=== PATIENT | female | born 1945 | race Caucasian/White ===

== ENCOUNTER 2020-03-05 20:28 | Emergency (ER) | payer MEDICARE, SELFPAY ==
[2020-03-05 20:31] VITALS: BP 181/69; PULSE 69; RESP 30; TEMP 36.9; O2SAT 91
--- NOTE | 2020-03-05 20:37 | XR_ITS ---
WS: [id number] EXAM: AP CHEST: PORTABLE UPRIGHT DATE OF EXAM: 03/05/2020, 2101 hours COMPARISON: Chest x-ray from 06/04/2018 HISTORY: Patient is 75 years old with dyspnea. FINDINGS: The cardiac silhouette is slightly larger than on prior imaging. Question if related to technique T he mediastinal contours show interval stenting of a thoracic aneurysm. Interval postop sternotomy ch anges from presumed coronary artery bypass as well. The pulmonary vascularity is congested. Right lung is clear. There has been interval development of a left mid and lower chest infiltrate/pneumonia with a suspected small effusion. No pneumothorax. 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 Surgical clips in the left axil maya region. No acute bony abnormality is seen. XR/XR chest 1V portable [id number] IMPRESSION: Findings of new left lung infiltrates suggesting a left lung pneumonia. Interva l surgical changes as described.
--- NOTE | 2020-03-05 20:39 | ECG_ITS ---
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 Measurements Intervals [place] Rate: 65 P: 70 MN: 132 QRS: 39 QRSD: 109 T: 56 QT: 376 QTc: 393 Interpretive Statements SINUS RHYTHM Compared to ECG 06/04/2018 10:39:06 Sinus tachycardia no longer present Incomplete right bundle-branch block no longer present Electronically Signed On 03-06-2020 20:51:53 CDT by Rosendo Ward M.D. [id number]
--- NOTE | 2020-03-05 20:42 | ED_ITS ---
HPI - SOB/Dyspnea General: Chief Complaint: Shortness of Breath/Dyspnea Stated Complaint: Shortness of Breath Time Seen by Provider: 03/05/20 20:28 Source: patient and EMS Mode of arrival: EMS Limitations: physical limitation (Respiratory distress) History of Present Illness: HPI Narrative: Mrs. Morrison is a nice 75-year-old female who comes in in respiratory distress. She arrives by EMS states that they noted the patient to be hypoxic on her normal oxygen in the low 80s. This was believed to be on 6 L nasal cannula oxygen. They gave the patient 2 albuterol treatments in route along with 125 mg of Solu-Medrol. This time the patient's history is very limited but she states she has been home approximately 5 days from a procedure at [facility]. She states that ever since she left the hospital she is progressively becoming more short of breath. She does have a cough and it is productive of sputum. Review of Systems General: Reports: ROS unobtainable due to medical condition (Unable to obtain secondary to respiratory distress) Physical Exam Const: COMMON NORMALS: patient oriented x3 and alert GENERAL APPEARANCE: cooperative, in distress and ill appearing HENMT: COMMON NORMALS: normocephalic, atraumatic, external ears normal, EAC's normal and Normal external nose present HEAD & SCALP: normal to inspection, normocephalic and atraumatic FACE & SINUS: normal facial exam and face symmetric NOSE: Normal external nose present and Normal nares present EXTERNAL EAR: Yes external ears normal EXTERNAL AUDITORY CANAL: EAC's normal MOUTH: Normal oral and palatal mucosa present, lip normal and tongue normal Eye: COMMON NORMALS: Equal, round and reactive pupils present and conjunctivae normal GENERAL EYE: appearance normal, both eyes and all related structures ALIGNMENT: Yes alignment normal PERIORBITAL: periorbital findings normal EYELID: eyelids normal CONJUNCTIVA: Yes conjunctivae normal SCLERA: sclerae normal PUPIL: Yes Equal, round and reactive pupils present Neck/C-Spine: COMMON NORMALS: full ROM, no lymphadenopathy, supple, no meningeal signs and no JVD GENERAL: Yes normal visual inspection and Yes trachea midline Chest: COMMONS NORMALS: normal inspection of the chest and normal palpation of entire chest wall Resp: EFFORT & INSPECTION: Yes respiratory distress, Yes labored and Yes retractions AUSCULTATION: rales, rhonchi, wheezes and diminished lung sounds Cardio: COMMON NORMALS: no JVD, regular rate, regular rhythm, S1 normal heart sound present and S2 normal heart sound present RATE: regular rate RHYTHM: regular rhythm HEART SOUNDS: S1 normal heart sound present, S2 normal heart sound present, no click, no gallops, no murmurs and no rubs GI: COMMON NORMALS: Soft to palpation and No hepatosplenomegaly present PALPATION: Yes Soft to palpation, No Tenderness to palpation present (GI), No Guarding due to palpation present (GI), No Rigid due to palpation, Yes No hepatosplenomegaly present, No Hernia present, No Palpable mass present and No Pulsatile mass present : COMMON NORMALS: Yes no CVA tenderness BLADDER/KIDNEY EXAM: Yes no CVA tenderness EXTERNAL FEMALE EXAM: No Hernia present Back/Pelvis: COMMON NORMALS: no CVA tenderness, thoracic and lumbar spine n ormal to inspection, no thoracic nor lumbar tenderness and thoraco-lumbar ROM normal Extremity: COMMON NORMALS: normal to inspection, full ROM, capillary refill normal, no joint enlargement and no calf tenderness GENERAL: Yes edema Neuro: COMMON NORMALS: patient oriented x3, CN's II-XII intact bilaterally, moves all extremities, no focal motor deficits and no sensory deficits noted SENSORIUM/ORIENTATION: Yes alert MENINGEAL SIGNS: Yes no meningeal signs SPEECH: speech normal Skin: COMMON NORMALS: no rashes or lesions noted, turgor normal, no jaundice, no petechiae and no mottling GENERAL SKIN EXAM: no rashes or lesions noted and turgor normal Procedures EJ/Peripheral Line Arm R: Time Out Performed: Yes Skin Cleansed in Sterile Fashion: Yes Size (gauge): 20 IV Secured and Dressing Applied: Yes Patient Tolerated Procedure: well and no complications Additional Comments: Ultrasound utilized throughout procedure. There were no complications. 20-gauge 2-1/2 inch needle was placed under direct visualization with ultrasound. There was good blood return and the catheter flushed well. Line was secured by nursing. Course ED course: 2308 -EMS reported that the patient had an abdominal aortic aneurysm stenting. I have just now received records from [facility] which reveals this was a thoracic aortic aneurysm repair. This does correlate to the mesh that I see on chest x-ray. The patient has been a poor historian secondary to her respiratory distress. She denies having any chest pain. Nonetheless I am going to go ahead and get a CT of the aorta dissection protocol to rule out any leakage or complication from surgery. Vital Signs: Vital signs: Vital Signs Temperature 98.5 F 03/05/20 20:31 Pulse Rate 66 03/06/20 00:22 Respiratory Rate 18 03/06/20 00:22 Blood Pressure 120/74 03/06/20 00:22 Pulse Oximetry 99 03/06/20 00:22 MDM - SOB/Dyspnea MDM Narrative: Medical decision making narrative: 0200 - Patient CT scan shows an endoleak and an enlarging aneurysm. I discussed the case with both Dr. Stoddard and Dr. Vazquez and they believe the patient needs to be transferred to a higher level of care as we do not have the ability to take care of any complication from this procedure. Reviewed the case with Dr. Garcia at [facility] in [place] who performed the procedure and he agrees to consult but would like the hospitalist admission there. Dr. Garica believes that the findings are normal post procedure findings. With no sign of dissection he believes the patient primarily just has pneumonia she is not having chest pain and there is no dissection. He will evaluate her when she gets here but does not believe this to be a primary complication from the procedure. I reviewed the rest of the case with Dr. Domínguez, he agrees accept the patient and will accept the patient as soon as a bed is available. Patient is still currently on BiPAP and stable and is received antibiotics. Lab Data: Labs: Lab Results 03/05/20 03/05/20 03/05/20 Range/Units 21:10 21:10 21:10 WBC 17.8 H (4.0-10.0) 10^3/ uL RBC 3.37 L (4.1-5.3) 10^6/u L Hgb 9.2 L (11.5-15.3) g/dL Hct 30.2 L (37.0-47.0) % MCV 89.6 (81-99) fL MCH 27.3 L (28.0-34.0) pg MCHC 30.5 (30.0-36.0) g/dL RDW 14.6 (12.1-15.1) % Plt Count 532 H (130-400) 10^3/c mm MPV 9.3 (7.4-10.4) fL Neut % (Auto) 87.6 % Lymph % (Auto) 6.0 % [place] % (Auto) 4.0 % Eos % (Auto) 0.6 % Baso % (Auto) 0.2 % Neut # (Auto) 15.62 H (1.8-7.7) 10^3/u L Lymph # (Auto) 1.1 (0.8-4.8) 10^3/u L [place] # (Auto) 0.7 (0.2-0.9) 10^3/u L Eos # (Auto) 0.1 (0.0-0.8) 10^3/u L Baso # (Auto) 0.0 (0.0-0.1) 10^3/u L Nucleated RBC % (a uto) 0.4 % Nucleated RBCs # 0.1 /100WBC PT (12.1-14.9) SECO NDS INR (0.8-1.2) APTT (23.9-36.7) SECO NDS Specimen Type Sample Site ABG pH (7.35-7.45) ABG pCO2 (35-45) mmHg ABG pO2 (80.0-100.0) mmH g ABG HCO3 (22-26) mmol/L ABG O2 Saturation ABG Base Excess (-2.0-2.0) mmol/ L Lisandro Test A-a O2 Gradient (5-10) mmHg Hematocrit (37-47) % Hgb O2 Saturation (95-100) % Carboxyhemoglobin (0.4-20.1) %THgb Methemoglobin (0.4-1.5) % Total Hemoglobin (12-16) g/dL Ionized Calcium (1.1-1.4) mmol/L O2 Delivery Device FiO2 % Information Technology Audit Manager ID Sodium 128 L (136-145) mmol/L Potassium 4.6 (3.5-5.1) mmol/L Chloride 96 L (98-107) mmol/L Carbon Dioxide 21 L (22-29) mmol/L Anion Gap 15.6 (5-19) BUN 15 (8-23) mg/dL Creatinine 0.7 (0.5-0.9) mg/dL GFR Calculation Not Reportable Glucose 221 H (65-115) mg/dL Calculated Osmolal ity 269 L (285-295) mOsm/k g Lactic Acid 2.3 H (0.5-2.2) mmol/L Lactic Acid (Sepsi s) (0.5-2.2) mmol/L Calcium 8.0 L (8.5-10.5) mg/dL Magnesium 2.3 (1.7-2.3) mg/dL Total Bilirubin 0.3 (0.15-1.2) mg/dL AST 18 (0-32) U/L ALT 25 (0-33) U/L Alkaline Phosphata se 174 H (35-105) IU/L Troponin T Baselin e (0-10) ng/L Troponin T 120 Min [place] (0-10) ng/L Delta Troponin T (0-10) ABS# NT-Pro-B Natriuret Pep 2589 H (0-125) pg/mL Total Protein 6.8 (6.6-8.7) g/dL Albumin 2.9 L (3.5-5.2) g/dL Globulin 3.9 (1.3-4.6) g/dL Urine Color (Yellow) Urine Appearance (CLEAR) Urine pH (5-7) Ur Specific Gravit y (1.005-1.030) Urine Protein (Negative) Urine Glucose (UA) (Normal) Urine Ketones (Negative) Urine Blood (Negative) Urine Nitrate (Negative) Urine Bilirubin (Negative) Urine Urobilinogen (Negative) mg/dL Ur Leukocyte Lilian ase (Negative) Influenza Type A A g (Negative) Influenza Type B A g (Negative) SARS-CoV-2 Ag (Rap id) (Negative) 03/05/20 03/05/20 03/05/20 Range/Units 21:10 21:10 21:20 WBC (4.0-10.0) 10^3/ uL RBC (4.1-5.3) 10^6/u L Hgb (11.5-15.3) g/dL Hct (37.0-47.0) % MCV (81-99) fL MCH (28.0-34.0) pg MCHC (30.0-36.0) g/dL RDW (12.1-15.1) % Plt Count (130-400) 10^3/c mm MPV (7.4-10.4) fL Neut % (Auto) % Lymph % (Auto) % [place] % (Auto) % Eos % (Auto) % Baso % (Auto) % Neut # (Auto) (1.8-7.7) 10^3/u L Lymph # (Auto) (0.8-4.8) 10^3/u L [place] # (Auto) (0.2-0.9) 10^3/u L Eos # (Auto) (0.0-0.8) 10^3/u L Baso # (Auto) (0.0-0.1) 10^3/u L Nucleated RBC % (a uto) % Nucleated RBCs # /100WBC PT 38.50 H (12.1-14.9) SECO NDS INR 3.74 H (0.8-1.2) APTT 48.9 H (23.9-36.7) SECO NDS Specimen Type Arterial Sample Site Brachial, right ABG pH 7.39 (7.35-7.45) ABG pCO2 34.1 L (35-45) mmHg ABG pO2 66.1 L (80.0-100.0) mmH g ABG HCO3 20.8 L (22-26) mmol/L ABG O2 Saturation 94.0 ABG Base Excess -3.5 L (-2.0-2.0) mmol/ L Lisandro Test Pos A-a O2 Gradient 23.1 H (5-10) mmHg Hematocrit 30.3 L (37-47) % Hgb O2 Saturation 92.3 L (95-100) % Carboxyhemoglobin 1.1 (0.4-20.1) %THgb Methemoglobin 0.7 (0.4-1.5) % Total Hemoglobin 9.9 L (12-16) g/dL Ionized Calcium 1.1 (1.1-1.4) mmol/L O2 Delivery Device Bipap FiO2 40.0 % Information Technology Audit Manager ID [email or web address] Sodium 129.0 L (136-145) mmol/L Potassium 4.5 (3.5-5.1) mmol/L Chloride (98-107) mmol/L Carbon Dioxide (22-29) mmol/L Anion Gap (5-19) BUN (8-23) mg/dL Creatinine (0.5-0.9) mg/dL GFR Calculation Glucose 231.0 H (65-115) mg/dL Calculated Osmolal ity (285-295) mOsm/k g Lactic Acid (0.5-2.2) mmol/L Lactic Acid (Sepsi s) (0.5-2.2) mmol/L Calcium (8.5-10.5) mg/dL Magnesium (1.7-2.3) mg/dL Total Bilirubin (0.15-1.2) mg/dL AST (0-32) U/L ALT (0-33) U/L Alkaline Phosphata se (35-105) IU/L Troponin T Baselin e 23 H (0-10) ng/L Troponin T 120 Min [place] (0-10) ng/L Delta Troponin T (0-10) ABS# NT-Pro-B Natriuret Pep (0-125) pg/mL Total Protein (6.6-8.7) g/dL Albumin (3.5-5.2) g/dL Globulin (1.3-4.6) g/dL Urine Color (Yellow) Urine Appearance (CLEAR) Urine pH (5-7) Ur Specific Gravit y (1.005-1.030) Urine Protein (Negative) Urine Glucose (UA) (Normal) Urine Ketones (Negative) Urine Blood (Negative) Urine Nitrate (Negative) Urine Bilirubin (Negative) Urine Urobilinogen (Negative) mg/dL Ur Leukocyte Lilian ase (Negative) Influenza Type A A g (Negative) Influenza Type B A g (Negative) SARS-CoV-2 Ag (Rap id) (Negative) 03/05/20 03/05/20 03/05/20 Range/Units 21:26 21:26 22:20 WBC (4.0-10.0) 10^3/ uL RBC (4.1-5.3) 10^6/u L Hgb (11.5-15.3) g/dL Hct (37.0-47.0) % MCV (81-99) fL MCH (28.0-34.0) pg MCHC (30.0-36.0) g/dL RDW (12.1-15.1) % Plt Count (130-400) 10^3/c mm MPV (7.4-10.4) fL Neut % (Auto) % Lymph % (Auto) % [place] % (Auto) % Eos % (Auto) % Baso % (Auto) % Neut # (Auto) (1.8-7.7) 10^3/u L Lymph # (Auto) (0.8-4.8) 10^3/u L [place] # (Auto) (0.2-0.9) 10^3/u L Eos # (Auto) (0.0-0.8) 10^3/u L Baso # (Auto) (0.0-0.1) 10^3/u L Nucleated RBC % (a uto) % Nucleated RBCs # /100WBC PT (12.1-14.9) SECO NDS INR (0.8-1.2) APTT (23.9-36.7) SECO NDS Specimen Type Sample Site ABG pH (7.35-7.45) ABG pCO2 (35-45) mmHg ABG pO2 (80.0-100.0) mmH g ABG HCO3 (22-26) mmol/L ABG O2 Saturation ABG Base Excess (-2.0-2.0) mmol/ L Lisandro Test A-a O2 Gradient (5-10) mmHg Hematocrit (37-47) % Hgb O2 Saturation (95-100) % Carboxyhemoglobin (0.4-20.1) %THgb Methemoglobin (0.4-1.5) % Total Hemoglobin (12-16) g/dL Ionized Calcium (1.1-1.4) mmol/L O2 Delivery Device FiO2 % Information Technology Audit Manager ID Sodium (136-145) mmol/L Potassium (3.5-5.1) mmol/L Chloride (98-107) mmol/L Carbon Dioxide (22-29) mmol/L Anion Gap (5-19) BUN (8-23) mg/dL Creatinine (0.5-0.9) mg/dL GFR Calculation Glucose (65-115) mg/dL Calculated Osmolal ity (285-295) mOsm/k g Lactic Acid (0.5-2.2) mmol/L Lactic Acid (Sepsi s) (0.5-2.2) mmol/L Calcium (8.5-10.5) mg/dL Magnesium (1.7-2.3) mg/dL Total Bilirubin (0.15-1.2) mg/dL AST (0-32) U/L ALT (0-33) U/L Alkaline Phosphata se (35-105) IU/L Troponin T Baselin e (0-10) ng/L Troponin T 120 Min [place] (0-10) ng/L Delta Troponin T (0-10) ABS# NT-Pro-B Natriuret Pep (0-125) pg/mL Total Protein (6.6-8.7) g/dL Albumin (3.5-5.2) g/dL Globulin (1.3-4.6) g/dL Urine Color Yellow (Yellow) Urine Appearance Clear (CLEAR) Urine pH 6 (5-7) Ur Specific Gravit y 1.000 L (1.005-1.030) Urine Protein Neg (Negative) Urine Glucose (UA) Norm (Normal) Urine Ketones Negative (Negative) Urine Blood Neg (Negative) Urine Nitrate Negative (Negative) Urine Bilirubin Neg (Negative) Urine Urobilinogen 1 H (Negative) mg/dL Ur Leukocyte Lilian ase Negative (Negative) Influenza Type A A g Negative (Negative) Influenza Type B A g Negative (Negative) SARS-CoV-2 Ag (Rap id) Negative (Negative) 03/05/20 03/05/20 Range/Units 23:10 23:11 WBC (4.0-10.0) 10^3/ uL RBC (4.1-5.3) 10^6/u L Hgb (11.5-15.3) g/dL Hct (37.0-47.0) % MCV (81-99) fL MCH (28.0-34.0) pg MCHC (30.0-36.0) g/dL RDW (12.1-15.1) % Plt Count (130-400) 10^3/c mm MPV (7.4-10.4) fL Neut % (Auto) % Lymph % (Auto) % [place] % (Auto) % Eos % (Auto) % Baso % (Auto) % Neut # (Auto) (1.8-7.7) 10^3/u L Lymph # (Auto) (0.8-4.8) 10^3/u L [place] # (Auto) (0.2-0.9) 10^3/u L Eos # (Auto) (0.0-0.8) 10^3/u L Baso # (Auto) (0.0-0.1) 10^3/u L Nucleated RBC % (a uto) % Nucleated RBCs # /100WBC PT (12.1-14.9) SECO NDS INR (0.8-1.2) APTT (23.9-36.7) SECO NDS Specimen Type Sample Site ABG pH (7.35-7.45) ABG pCO2 (35-45) mmHg ABG pO2 (80.0-100.0) mmH g ABG HCO3 (22-26) mmol/L ABG O2 Saturation ABG Base Excess (-2.0-2.0) mmol/ L Lisandro Test A-a O2 Gradient (5-10) mmHg Hematocrit (37-47) % Hgb O2 Saturation (95-100) % Carboxyhemoglobin (0.4-20.1) %THgb Methemoglobin (0.4-1.5) % Total Hemoglobin (12-16) g/dL Ionized Calcium (1.1-1.4) mmol/L O2 Delivery Device FiO2 % Information Technology Audit Manager ID Sodium (136-145) mmol/L Potassium (3.5-5.1) mmol/L Chloride (98-107) mmol/L Carbon Dioxide (22-29) mmol/L Anion Gap (5-19) BUN (8-23) mg/dL Creatinine (0.5-0.9) mg/dL GFR Calculation Glucose (65-115) mg/dL Calculated Osmolal ity (285-295) mOsm/k g Lactic Acid (0.5-2.2) mmol/L Lactic Acid (Sepsi s) 2.3 H (0.5-2.2) mmol/L Calcium (8.5-10.5) mg/dL Magnesium (1.7-2.3) mg/dL Total Bilirubin (0.15-1.2) mg/dL AST (0-32) U/L ALT (0-33) U/L Alkaline Phosphata se (35-105) IU/L Troponin T Baselin e (0-10) ng/L Troponin T 120 Min [place] 20.59 H (0-10) ng/L Delta Troponin T -2.41 L (0-10) ABS# NT-Pro-B Natriuret Pep (0-125) pg/mL Total Protein (6.6-8.7) g/dL Albumin (3.5-5.2) g/dL Globulin (1.3-4.6) g/dL Urine Color (Yellow) Urine Appearance (CLEAR) Urine pH (5-7) Ur Specific Gravit y (1.005-1.030) Urine Protein (Negative) Urine Glucose (UA) (Normal) Urine Ketones (Negative) Urine Blood (Negative) Urine Nitrate (Negative) Urine Bilirubin (Negative) Urine Urobilinogen (Negative) mg/dL Ur Leukocyte Lilian ase (Negative) Influenza Type A A g (Negative) Influenza Type B A g (Negative) SARS-CoV-2 Ag (Rap id) (Negative) Imaging Data^: CXR: Attestation: I personally reviewed and interpreted this imaging study as follows: My impression: Left lower lobe infiltrate. Thoracic aortic mesh noted. No sign of mediastinal widening or rupture. CTA aorta: Radiologist's impression: [place] [address] CT Scan Report Signed with Tan Patient: Gail Morrison Unit #: [id number] : 1945 Age/Sex: 75 / F ADM Date: 03/05/20 Loc: ER Room/Bed: Attending Dr: Ordering Provider/Ordering MD: Justine De La O DO Date of Service: 03/05/20 Procedure(s): CT angio chest w abd pel w con Accession Number(s): [id number] Report Number: [id number]UM [address]/CT angio chest w abd pel w con THIS REPORT CONTAINS FINDINGS THAT MAY BE CRITICAL TO PATIENT CARE. The findings were verbally communicated via telephone conference with Justine De La O at 12:56 AM CDT on 03/06/2020. The findings were acknowledged and understood. Radiation Dose CTDIVOL = (mGy): DLP = 2644.55 2644.55 (mGy-cm) Addendum Dictated By: Khalida Patel Addendum Signed By: Khalida Patel Signed Date/Time: 03/06/20 005 Addendum Cosigned By: PROCEDURE INFORMATION: Exam: CT Angiography Chest Without And With Contrast Exam date and time: 03/05/2020 11:10 PM Age: 75 years old Clinical indication: Other: Short of breath; Prior surgery; Surgery date: 3-7 days post-operative; Surgery type: Thoracic aorta repair; Patient HX: Sudden onset of shortness of breath tonight; Additional info: Chest/abdominal pain TECHNIQUE: Imaging protocol: Computed tomographic angiography of the chest without and with intravenous contrast. 3D rendering (Not supervised by radiologist): MIP and/or 3D reconstructed images were created by the technologist. Radiation optimization: All CT scans at this facility use at least one of these dose optimization techniques: automated exposure control; mA and/or kV adjustment per patient size (includes targeted exams where dose is matched to clinical indication); or iterative reconstruction. Contrast material: OMNIPAQUE 350; Contrast volume: 95 ml; Contrast route: INTRAVENOUS (IV); COMPARISON: CR XR chest 1V portable [id number] 03/05/2020 8:58 PM RADIATION DOSE METRICS: Total DLP (mGy-cm): 2644.55 FINDINGS: Pulmonary arteries: There is no pulmonary embolus. Aorta: The root of the ascending thoracic aorta measures 4 cm and is otherwise unremarkable without dissection or leak. There is an aortic stent graft in the distal ascending thoracic aorta, aortic arch and descending thoracic aorta. The greatest transverse measurement of the thoracic aorta is at the distal thoracic aortic arch measuring 5.9 cm increased from the preoperative film where measured 5 cm. There is an endoleak with contrast outside of the stent graft series 602, image 35 along superior left aspect of the aortic arch also identified on series 5 image 21 through 26. Probable mural hematoma along the posterior left aortic arch and proximal descending thoracic aorta measures up to 1.6 cm in thickness. The mid to distal thoracic aorta is unchanged in appearance without dissection or leak. The branches off of the aortic arch are well opacified. Great vessels off aortic arch: The endoleak is occurring adjacent to the origin of the left subclavian artery from the aortic arch. A left subclavian stent is well opacified. Lungs: There is dense airspace consolidation/pneumonic infiltrate in the left lower lobe with air bronchograms. There is patchy pneumonitis/volume loss in the right lower lobe. There are moderate to severe emphysematous changes. Pleural space: There is a small left pleural effusion. Heart: The heart is enlarged. There is a small pericardial fluid collection present. Lymph nodes: Unremarkable. No enlarged lymph nodes. Bones/joints: Postoperative changes of a median sternotomy are noted. Soft tissues: Unremarkable. IMPRESSION: 1. 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 There is an aortic stent graft with endoleak and probable mural hematoma. No dissection. 2. There is dense airspace consolidation/pneumonic infiltrate in the left lower lobe with air bronchograms. There is patchy pneumonitis/volume loss in the right lower lobe. There is a left pleural effusion. 3. There is no pulmonary embolus. PROCEDURE INFORMATION: Exam: CT Abdomen And Pelvis With Contrast Exam date and time: 03/05/2020 11:10 PM Age: 75 years old Clinical indication: Other: Short of breath; Prior surgery; Surgery date: 3-7 days post-operative; Surgery type: Thoracic aorta repair; Patient HX: Sudden onset of shortness of breath tonight; Additional info: Chest/abdominal pain TECHNIQUE: Imaging protocol: Computed tomography of the abdomen and pelvis with intravenous contrast. Radiation optimization: All CT scans at this facility use at least one of these dose optimization techniques: automated exposure control; mA and/or kV adjustment per patient size (includes targeted exams where dose is matched to clinical indication); or iterative reconstruction. Contrast material: OMNIPAQUE 350; Contrast volume: 95 ml; Contrast route: INTRAVENOUS (IV); COMPARISON: CR XR chest 1V portable [id number] 03/05/2020 8:58 PM RADIATION DOSE METRICS: Total DLP (mGy-cm): 2644.55 FINDINGS: Tubes, catheters and devices: A balloon bladder catheter is present. Liver: There is an unchanged liver cyst. The liver is otherwise homogeneous in density. Gallbladder and bile ducts: Normal. No calcified stones. No ductal dilation. Pancreas: Normal. No ductal dilation. Spleen: Normal. No splenomegaly. Adrenals: There are unchanged adrenal nodules with the right nodule measuring 1.5 cm in size and the left measuring 2.7 cm. Kidneys and ureters: There is no evidence of hydronephrosis. There is no evidence of renal calcifications. There are multiple renal hypodensities that cannot be further characterized on the current examination. Stomach and bowel: Moderate diverticulosis is present in the distal colon. There is no evidence of intestinal perforation or obstruction. There is no evidence of colitis/diverticulitis. Appendix: The appendix is not definitively identified. However, there is no CT evidence of a right lower quadrant inflammatory process. Intraperitoneal space: Unremarkable. No free air. No significant fluid collection. Vasculature: Unremarkable.No abdominal aortic aneurysm. Lymph nodes: Unremarkable.No enlarged lymph nodes. Bladder: The bladder is decompressed. Reproductive: Unremarkable as visualized. Bones/joints: Unremarkable. No acute fracture. Soft tissues: There is diffuse induration of the subcutaneous fat and mesenteric fat compatible with anasarca type changes. CT/CT angio chest w abd pel w con IMPRESSION: 1. No acute abnormality in the abdomen or pelvis. There is an unchanged liver cyst and unchanged bilateral adrenal nodules. No bowel thickening or inflammatory changes. No aneurysm of the abdominal aorta. 2. There is diffuse induration of the subcutaneous fat and mesenteric fat compatible with anasarca type changes. Radiation Dose CTDIVOL = (mGy): DLP = 2644.55 2644.55 (mGy-cm) Dictated By: Khalida Patel Signed By: Khalida Patel Signed Date/Time: 03/06/2054 DD/ EKG Data^: EKG 1: Attestation: I personally reviewed and interpreted this EKG as follows: EKG Interpretation Date: 03/05/20 EKG interpretation time: 20:50 Interpretation: Normal sinus rhythm 65 beats a minute, normal axis, normal intervals, no blocks, no acute ST or T wave changes. Discharge Plan Discharge Patient Disposition: Xfer Short-Term Hosp Clinical Impression: Acute respiratory distress, Acute exacerbation of chronic obstructive airways disease, Aneurysm of ascending aorta Pneumonia Qualifiers: Pneumonia type: due to unspecified organism Laterality: left Lung location: lower lobe of lung Qualified Code(s): J18.9 - Pneumonia, unspecified organism Referrals: Ruba Martinez MD [Primary Care Provider] - Discharge Date/Time: 03/05/20 23:38 Coding Level of Care Code ED Sports Photographer for g Fwd Exam Comprehensive
[2020-03-05 20:50] VITALS: PULSE 76; RESP 28; O2SAT 95
[2020-03-05] MEDS: ipratropium-albuterol 3 mL Neb 9 ML INHALATION (20:50)
[2020-03-05 21:10] VITALS: PULSE 79; RESP 28; O2SAT 96
[2020-03-05 21:19] LABS: Basophils % 0.2 %; Eosinophils # 0.1 10^3/uL (0.0-0.8); Eosinophils % 0.6 %; Hematocrit 30.2 % (37.0-47.0); Hemoglobin 9.2 g/dL (11.5-15.3); Lymphocytes # 1.1 10^3/uL (0.8-4.8); Mean Corpuscular HGB Conc 30.5 g/dL (30.0-36.0); Mean Corpuscular Hemoglobin 27.3 pg (28.0-34.0); Mean Corpuscular Volume 89.6 fL (81-99); Mean Platelet Volume 9.3 fL (7.4-10.4); Monocytes # 0.7 10^3/uL (0.2-0.9); Neutrophils # 15.62 10^3/uL (1.8-7.7); Neutrophils % 87.6 %; Nucleated Red Blood Cells # 0.1 /100WBC; Nucleated Red Blood Cells % 0.4 %; Platelet Count 532 10^3/cmm (130-400); Red Blood Count 3.37 10^6/uL (4.1-5.3); Red Cell Distribution Width 14.6 % (12.1-15.1); White Blood Count 17.8 10^3/uL (4.0-10.0)
[2020-03-05 21:30] LABS: ABG PCO2 34.1 mmHg (35-45); ABG PH Result 7.39 (7.35-7.45); Alveolar-Arterial Oxygen Gradi 23.1 mmHg (5-10); Arterial Blood Gas Hematocrit 30.3 % (37-47); Base Excess ABG -3.5 mmol/L (-2.0-2.0); Blood Gas Allen Test Pos; Blood Gas Sample Site Brachial, right; Blood Gas Sample Type Arterial; Carboxyhemoglobin 1.1 %THgb (0.4-20.1); HCO3 ABG 20.8 mmol/L (22-26); HGB O2 Sat 92.3 % (95-100); Ionized Calcium Level - ABG 1.1 mmol/L (1.1-1.4); Methemoglobin 0.7 % (0.4-1.5); Oxygen Device BIPAP; PO2 ABG 66.1 mmHg (80.0-100.0); Potassium Level - ABG 4.5 mmol/L (3.5-5.0); Total Hemoglobin 9.9 g/dL (12-16)
[2020-03-05] MEDS: FUROsemide 10 mg/mL SDV 4mL 40 MG IVP (21:39)
[2020-03-05] MEDS: piperacillin-tazobactam 3.375 GM in sodium chloride 0.9% (plus) 50 ML IV (21:39)
[2020-03-05] MEDS: sodium chloride 0.9% 1,000 ML 100 ML IV (21:40)
[2020-03-05] MEDS: vancomycin 1,000 MG in sodium chloride 0.9% 250 ML 250 MG IV (21:40)
[2020-03-05] MEDS: nitroglycerin 1 gm/inch oint Pkt 1 INCH TOPICAL (21:40)
[2020-03-05] MEDS: ondansetron 2 mg/ML SDV 2 mL 4 MG IVP (21:40)
[2020-03-05 21:48] LABS: Lactic Sepsis W/Reflex 2.3 mmol/L (0.5-2.2)
[2020-03-05 21:50] LABS: Troponin(5th) Baseline 23 ng/L (0-10)
[2020-03-05 21:58] LABS: Alanine Aminotransferase 25 U/L (0-33); Albumin Level 2.9 g/dL (3.5-5.2); Alkaline Phosphatase 174 IU/L (35-105); Anion Gap 15.6 (5-19); Aspartate Amino Transferase 18 U/L (0-32); Blood Urea Nitrogen 15 mg/dL (8-23); Carbon Dioxide 21 mmol/L (22-29); Chloride 96 mmol/L (98-107); Globulin 3.9 g/dL (1.3-4.6); Glucose 221 mg/dL (65-115); Magnesium 2.3 mg/dL (1.7-2.3); NT Pro B Type Natriuretic Pept 2589 pg/mL (0-125); Osmolality Calculated 269 mOsm/kg (285-295); Potassium 4.6 mmol/L (3.5-5.1); Sodium 128 mmol/L (136-145); Total Bilirubin 0.3 mg/dL (0.15-1.2); Total Protein 6.8 g/dL (6.6-8.7)
[2020-03-05 22:13] LABS: SARS Covid-2 Antigen Negative (Negative)
[2020-03-05 22:23] LABS: Add Urine Microscopic? NO
[2020-03-05 22:28] LABS: Influenza A by IFA Negative (Negative); Influenza B by IFA Negative (Negative)
[2020-03-05 22:30] LABS: INR 3.74 (0.8-1.2)
[2020-03-05 22:31] LABS: Partial Thromboplastin Time 48.9 SECONDS (23.9-36.7)
[2020-03-05 22:32] LABS: Bilirubin Urine Neg (Negative); Blood Urine Neg (Negative); Glucose Urine UA Norm (Normal); Ketones Urine Negative (Negative); Leukocyte Esterase Urine Negative (Negative); Nitrate Urine Negative (Negative); Protein Urine Neg (Negative); Urine Appearance Clear (CLEAR); Urine Color Yellow (Yellow); Urobilinogen Urine 1 mg/dL (Negative); pH Urine 6 (5-7)
--- NOTE | 2020-03-05 23:03 | CTR_ITS ---
PROCEDURE INFORMATION: Exam: CT Angiography Chest Without And With Contrast Exam date and time: 03/05/2020 11:10 PM Age: 75 years old Clinical indication: Other: Short of breath; Prior surgery; Surgery date: 3-7 days post-operative; Surgery type: Thoracic aorta repair; Patient HX: Sudden onset of shortness of breath tonight; Additional info: Chest/abdominal pain TECHNIQUE: Imaging protocol: Computed tomographic angiography of the chest without and with intravenous contrast. 3D rendering (Not supervised by radiologist): MIP and/or 3D reconstructed images were created by the technologist. Radiation optimization: All CT scans at this facility use at least one of these dose optimization techniques: automated exposure control; mA and/or kV adjustment per patient size (includes targeted exams where dose is matched to clinical indication); or iterative reconstruction. Contrast material: OMNIPAQUE 350; Contrast volume: 95 ml; Contrast route: INTRAVENOUS (IV); COMPARISON: [employer] XR chest 1V portable [id number] 03/05/2020 8:58 PM RADIATION DOSE METRICS: Total DLP (mGy-cm): 2644.55 FINDINGS: Pulmonary arteries: There is no pulmonary embolus. Aorta: The root of the ascending thoracic aorta measures 4 cm and is otherwise unremarkable without dissection or leak. There is an aortic stent graft in the distal ascending thoracic aorta, aortic arch and descending thoracic aorta. The greatest transverse measurement of the thoracic aorta is at the distal thoracic aortic arch measuring 5.9 cm increased from the preoperative film where measured 5 cm. There is an endoleak with contrast outside of the stent graft series 602, image 35 along superior left aspect of the aortic arch also identified on series 5 image 21 through 26. Probable mural hematoma along the posterior left aortic arch and proximal descending thoracic aorta measures up to 1.6 cm in thickness. The mid to distal thoracic aorta is unchanged in appearance without dissection or leak. The branches off of the aortic arch are well opacified. Great vessels off aortic arch: The endoleak is occurring adjacent to the origin of the left subclavian artery from the aortic arch. A left subclavian stent is well opacified. Lungs: There is dense airspace consolidation/pneumonic infiltrate in the left lower lobe with air bronchograms. There is patchy pneumonitis/volume loss in the right lower lobe. There are moderate to severe emphysematous changes. Pleural space: There is a small left pleural effusion. Heart: The heart is enlarged. There is a small pericardial fluid collection present. Lymph nodes: Unremarkable. No enlarged lymph nodes. Bones/joints: Postoperative changes of a median sternotomy are noted. Soft tissues: Unremarkable. IMPRESSION: 1. 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 There is an aortic stent graft with endoleak and probable mural hematoma. No dissection. 2. There is dense airspace consolidation/pneumonic infiltrate in the left lower lobe with air bronchograms. There is patchy pneumonitis/volume loss in the right lower lobe. There is a left pleural effusion. 3. There is no pulmonary embolus. PROCEDURE INFORMATION: Exam: CT Abdomen And Pelvis With Contrast Exam date and time: 03/05/2020 11:10 PM Age: 75 years old Clinical indication: Other: Short of breath; Prior surgery; Surgery date: 3-7 days post-operative; Surgery type: Thoracic aorta repair; Patient HX: Sudden onset of shortness of breath tonight; Additional info: Chest/abdominal pain TECHNIQUE: Imaging protocol: Computed tomography of the abdomen and pelvis with intravenous contrast. Radiation optimization: All CT scans at this facility use at least one of these dose optimization techniques: automated exposure control; mA and/or kV adjustment per patient size (includes targeted exams where dose is matched to clinical indication); or iterative reconstruction. Contrast material: OMNIPAQUE 350; Contrast volume: 95 ml; Contrast route: INTRAVENOUS (IV); COMPARISON: [facility] XR chest 1V portable [id number] 03/05/2020 8:58 PM RADIATION DOSE METRICS: Total DLP (mGy-cm): 2644.55 FINDINGS: Tubes, catheters and devices: A balloon bladder catheter is present. Liver: There is an unchanged liver cyst. The liver is otherwise homogeneous in density. Gallbladder and bile ducts: Normal. No calcified stones. No ductal dilation. Pancreas: Normal. No ductal dilation. Spleen: Normal. No splenomegaly. Adrenals: There are unchanged adrenal nodules with the right nodule measuring 1.5 cm in size and the left measuring 2.7 cm. Kidneys and ureters: There is no evidence of hydronephrosis. There is no evidence of renal calcifications. There are multiple renal hypodensities that cannot be further characterized on the current examination. Stomach and bowel: Moderate diverticulosis is present in the distal colon. There is no evidence of intestinal perforation or obstruction. There is no evidence of colitis/diverticulitis. Appendix: The appendix is not definitively identified. However, there is no CT evidence of a right lower quadrant inflammatory process. Intraperitoneal space: Unremarkable. No free air. No significant fluid collection. Vasculature: Unremarkable.No abdominal aortic aneurysm. Lymph nodes: Unremarkable.No enlarged lymph nodes. Bladder: The bladder is decompressed. Reproductive: Unremarkable as visualized. Bones/joints: Unremarkable. No acute fracture. Soft tissues: There is diffuse induration of the subcutaneous fat and mesenteric fat compatible with anasarca type changes. CT/CT angio chest w abd pel w con IMPRESSION: 1. No acute abnormality in the abdomen or pelvis. There is an unchanged liver cyst and unchanged bilateral adrenal nodules. No bowel thickening or inflammatory changes. No aneurysm of the abdominal aorta. 2. There is diffuse induration of the subcutaneous fat and mesenteric fat compatible with anasarca type changes. Radiation Dose CTDIVOL = (mGy): DLP = 2644.55~2644.55 (mGy-cm)
[2020-03-05 23:04] LABS: Reflex Lactate Order REFLEX LACTIC ORDERD
[2020-03-05 23:10] VITALS: BP 133/59; PULSE 64; RESP 23; O2SAT 94
[2020-03-05 23:25] VITALS: BP 112/54; PULSE 64; RESP 16; O2SAT 96
[2020-03-05 23:50] LABS: Lactic Acid level (Lactate) 2.3 mmol/L (0.5-2.2)
[2020-03-06] VITALS (19 sets, daily range): BP systolic 120–152; BP diastolic 63–88; PULSE 49–77; RESP 16–87; TEMP 36.2–36.6; O2SAT 92–99
[2020-03-06 00:14] LABS: Troponin 5 2HR 20.59 ng/L (0-10)
[2020-03-06 00:16] LABS: Troponin 5 2HR Delta -2.41 ABS# (0-10)
[2020-03-06] MEDS: iohexol 350 mg/mL 100 mL Btl IV (00:40)
[2020-03-06] MEDS: ipratropium-albuterol 3 mL Neb INHALATION ×2 (04:30→20:24)
--- NOTE | 2020-03-06 05:14 | PC.NURSE ---
Pt resting with eyes closed in no acute distress. Respirations even and unlabored
[2020-03-06] MEDS: sodium chloride 0.9% 1,000 ML 100 ML IV ×2 (06:02→19:03)
[2020-03-06] MEDS: piperacillin-tazobactam 3.375 GM in sodium chloride 0.9% (plus) 50 ML IV ×2 (06:03→20:10)
--- NOTE | 2020-03-06 06:46 | PC.NURSE ---
BiPap removed and pt provided with ice water at this time. Pt is alert and oriented. Denies any other needs at this time. BiPap placed back on pt and secure with no alarms sounding.
[2020-03-06] MEDS: vancomycin 1,000 MG in sodium chloride 0.9% 250 ML 250 MG IV (18:42)
[2020-03-06 19:23] LABS: Basophils % 0.1 %; Eosinophils % 0.1 %; Hematocrit 27.4 % (37.0-47.0); Hemoglobin 8.4 g/dL (11.5-15.3); Lymphocytes % 6.8 %; Mean Corpuscular HGB Conc 30.7 g/dL (30.0-36.0); Mean Corpuscular Hemoglobin 27.6 pg (28.0-34.0); Mean Corpuscular Volume 90.1 fL (81-99); Mean Platelet Volume 9.6 fL (7.4-10.4); Monocytes # 0.4 10^3/uL (0.2-0.9); Monocytes % 2.9 %; Neutrophils # 12.64 10^3/uL (1.8-7.7); Neutrophils % 87.9 %; Nucleated Red Blood Cells % 0.2 %; Platelet Count 524 10^3/cmm (130-400); Red Blood Count 3.04 10^6/uL (4.1-5.3); White Blood Count 14.4 10^3/uL (4.0-10.0)
[2020-03-06 20:39] LABS: ABG PCO2 34.8 mmHg (35-45); ABG PH Result 7.43 (7.35-7.45); PO2 ABG 70.1 mmHg (80.0-100.0)
[2020-03-06 20:40] LABS: HCO3 ABG 23.3 mmol/L (22-26); Oxygen Device BIPAP
[2020-03-06 20:47] LABS: Anion Gap 15.4 (5-19); Blood Urea Nitrogen 16 mg/dL (8-23); Calcium 8.3 mg/dL (8.5-10.5); Carbon Dioxide 23 mmol/L (22-29); Chloride 99 mmol/L (98-107); Glucose 205 mg/dL (65-115); Osmolality Calculated 276 mOsm/kg (285-295); Potassium 5.4 mmol/L (3.5-5.1); Sodium 132 mmol/L (136-145)
[2020-03-07] VITALS (7 sets, daily range): BP systolic 141–174; BP diastolic 67–92; PULSE 53–74; RESP 16–24; TEMP 36.6–36.8; O2SAT 94–98
[2020-03-07] MEDS: sodium chloride 0.9% 1,000 ML 100 ML IV (01:48)
[2020-03-07] MEDS: HYDROcodone-acetaminophen 5-325 mg Tablet 1 TAB PO (02:22)
--- NOTE | 2020-03-07 03:11 | PC.NURSE ---
Pt resting in bed this shift. Pt has been provided food and drinks as requested. Pt has received a bed bath and spent time without the bi-pap. Pulse ox remained 92% on 5L per NC; however, pt did have increased work of breathing. Pt is alert, oriented, no acute distress at this time.
[2020-03-07] MEDS: piperacillin-tazobactam 3.375 GM in sodium chloride 0.9% (plus) 50 ML IV (03:43)
--- NOTE | 2020-03-07 06:00 | XR_ITS ---
WS: [id number] EXAM: AP CHEST: PORTABLE UPRIGHT DATE OF EXAM: 03/07/2020, 0610 hours COMPARISON: Chest x-ray from 03/05/2020 HISTORY: Patient is 75 years old with pulmonary infiltrate follow-up.. FINDINGS: The cardiac silhouette is stable. Considered upper limits of normal to minimally enlarged. The medi astinal contours are similar. Postop endovascular stenting within the aortic knob again seen. Postop sternotomy changes from prior presumed coronary bypass. The pulmonary vascularity is congested. T he right lung appears clear other than some minimal atelectasis. Left mid lung and lower lung infiltrate is similar. Endovascular stenting in the left side of the low er neck similar. Small left effusion similar. No pneumothorax. No acute bony abnormality is seen. XR/XR chest 1V portable [id number] IMPRESSION: No change in left lung infiltrate/pneumonia and small left effusion. Minimal infiltrate suggesting atelectasis right lung base.
[2020-03-07] MEDS: vancomycin 1,000 MG in sodium chloride 0.9% 250 ML 250 MG IV (06:01)
--- NOTE | 2020-03-07 06:26 | PC.NURSE ---
Pt provided with drink of water at this time. Continues to cough up dark brown sputum.
--- NOTE | 2020-03-07 06:34 | PC.NURSE ---
06:15 received room for [facility]. Pt to go to unit 6D room [facility]. Attempt to call report at [phone] at 06:20 and spoke with Yocasta. Yocasta requests to call back and speak with dayshift nurse who is not available at this time.
--- NOTE | 2020-03-07 06:38 | PC.NURSE ---
Updated pt son Aaron with [facility] room number. Understanding verbalized
[2020-03-07] MEDS: ipratropium-albuterol 3 mL Neb INHALATION (07:52)
[2020-03-07 16:11] LABS: Blood Gas Allen Test POS; Blood Gas Operator Identificat PE
[2020-03-07 16:12] LABS: Blood Gas Sample Type ARTERIAL
== END 2020-03-07 09:03 | disposition short-term general hospital (02) ==
PROVIDERS: Emergency Medicine; Emergency Provider Family Medicine; PCP Family Medicine
DX: J44.0 Chronic obstructive pulmonary disease with (acute) lower respiratory infection (principal); J18.9 Pneumonia, unspecified organism; J44.1 Chronic obstructive pulmonary disease with (acute) exacerbation; R06.03 Acute respiratory distress; I71.2 Thoracic aortic aneurysm, without rupture
CPT/HCPCS: 12345; 36415; 36573; 36600; 51702; 71045; 71275; 74177; 80048; 80051; 80053; 81003; 82803; 82810; 83605; 83735; 83880; 83986; 84484; 85025; 85610; 85730; 87040; 87070; 87077; 87186; 87205; 87426; 87804; 93005; 94640; 94660; 96365; 96366; 96367; 96368; 96375; 96376; 99283; 99284; 99291; J1940; J2405; J2543; J2930; J3370; J7030; J7050; Q9967

== ENCOUNTER → 2020-04-05 10:59 | Outpatient (BNVA) | payer MEDICARE, SELFPAY | PROVIDERS: PCP Family Medicine; Visit Provider Family Medicine | DX: R73.9 Hyperglycemia, unspecified (principal); J18.9 Pneumonia, unspecified organism | CPT/HCPCS: 71046; 80053; 83036; 85025 ==

== ENCOUNTER → 2020-04-19 11:13 | Outpatient (BNVA) | payer MEDICARE, SELFPAY | PROVIDERS: PCP Family Medicine; Visit Provider Family Medicine | DX: E03.9 Hypothyroidism, unspecified (principal); E78.5 Hyperlipidemia, unspecified; I10 Essential (primary) hypertension; E11.65 Type 2 diabetes mellitus with hyperglycemia | CPT/HCPCS: 80053; 80061; 83036; 84443; 85025 ==

== ENCOUNTER → 2020-04-20 09:25 | Outpatient (BNVA) | payer MEDICARE, SELFPAY | PROVIDERS: PCP Family Medicine; Visit Provider Family Medicine | DX: R53.1 Weakness (principal); E03.9 Hypothyroidism, unspecified; E78.5 Hyperlipidemia, unspecified; J18.9 Pneumonia, unspecified organism; Z86.79 Personal history of other diseases of the circulatory system; R79.89 Other specified abnormal findings of blood chemistry; I10 Essential (primary) hypertension; E11.65 Type 2 diabetes mellitus with hyperglycemia | CPT/HCPCS: 84439; 84481 ==

== ENCOUNTER → 2020-05-10 15:43 | Outpatient (BNVA) | payer MEDICARE, SELFPAY | PROVIDERS: PCP Family Medicine; Visit Provider Internal Medicine Cardiovascular Disease | DX: N18.9 Chronic kidney disease, unspecified (principal); E78.2 Mixed hyperlipidemia; R06.02 Shortness of breath; I48.91 Unspecified atrial fibrillation; E03.9 Hypothyroidism, unspecified; I50.32 Chronic diastolic (congestive) heart failure; Z79.899 Other long term (current) drug therapy; Z98.890 Other specified postprocedural states; Z86.79 Personal history of other diseases of the circulatory system | CPT/HCPCS: 80048; 83880; 84443 ==

== ENCOUNTER → 2020-05-25 09:39 | Outpatient (BNVA) | payer MEDICARE, SELFPAY | PROVIDERS: PCP Family Medicine; Visit Provider Internal Medicine Cardiovascular Disease | DX: E78.2 Mixed hyperlipidemia (principal); E78.5 Hyperlipidemia, unspecified; I50.32 Chronic diastolic (congestive) heart failure; I48.91 Unspecified atrial fibrillation; Z86.79 Personal history of other diseases of the circulatory system | CPT/HCPCS: 80048; 80061; 80076; 83880 ==

== ENCOUNTER → 2020-06-26 11:20 | Outpatient (BNVA) | payer MEDICARE, SELFPAY | PROVIDERS: PCP Family Medicine; Visit Provider Family Medicine | DX: I48.91 Unspecified atrial fibrillation (principal); I50.32 Chronic diastolic (congestive) heart failure; Z86.79 Personal history of other diseases of the circulatory system; Z98.890 Other specified postprocedural states | CPT/HCPCS: 83880 ==